=== PATIENT | female | born 1960 | race Caucasian/White ===

== ENCOUNTER 2016-09-30 15:42 | Emergency (ER) | payer OTHER ==
[~2016-09-30] VITALS: Ht 168.9 cm; Wt 98.9 kg
--- NOTE | ~2016-09-30 | EKG ---
PATIENT: MARYELLEN SALAZAR UNIT #: [id number] Ventricular Rate: 61 BPM Atrial Rate: 61 BPM P-R Interval: 154 ms QRS Duration: 98 ms Q-T Interval: 432 ms QTC Calculation(Bezet): 434 ms P [place]: 43 degrees Calculated R [place]: 16 degrees Calculated T [place]: 34 degrees Diagnosis Line: Normal sinus rhythm Diagnosis Line: Normal ECG Diagnosis Line: When compared with ECG of 01-MAR-2016 17:37, Diagnosis Line: Premature atrial complexes are no longer Present Diagnosis Line: Confirmed by JACQUELYN ERWIN MD ([id number]) on Diagnosis Line: 09/30/2016 10:50:56 PM INTERPRETING MD: GEORGINA
--- NOTE | ~2016-09-30 | CT72 ---
[facility] A Service of [facility] RADIOLOGY TEXT RESULTS PATIENT: MARYELLEN SALAZAR LOCATION: [facility] : 56 UNIT #: [id number] AGE: [address]: Jarrett Howell MD SEX: F ORDER DR: [id number] [place], [place] [address] [id number] MR#: [id number] Acc #: [id number] NAME: MARYELLEN SALAZAR : 1960 SEX: F STUDY DATE/TIME: 09/30/2016 15:55 UNIT: MELISSA ROOM: STUDY DESCRIPTION: CT Head Wo Contrast Stroke Attending Physician: Jarrett Howell Ordering Physician: Ed Doc Donna Villarreal Primary Care Physician: Primary Care Physician No MEDICAL IMAGING REPORT This report is preliminary unless electronic signature is present EXAM Noncontrast CT head DATE 09/30/2016 HISTORY Pain and tingling in the bilateral lower extremities and left side facial droop beginning today. COMPARISON None TECHNIQUE Axial noncontrast images were obtained from the skull base to the vertex. This CT exam was performed with one or more of the following radiation dose reduction techniques: automatic exposure control, adjustment of mA and/or kV according to patient size, and iterative reconstruction. FINDINGS Ventricular size and configuration are normal. There is no evidence of acute infarct or hemorrhage. There are no extraaxial fluid collections. No mass lesion or mass effect is seen. There are no skull fractures. IMPRESSION Normal noncontrast head CT. Dictated by... Leyla Gipson M.D. [facility] A Service of [facility] RADIOLOGY TEXT RESULTS PATIENT: MARYELLEN SALAZAR LOCATION: [facility] : 56 UNIT #: [id number] AGE: [address]: Jarrett Howell MD SEX: F ORDER DR: THIS IS AN ELECTRONICALLY VERIFIED REPORT Leyla Gipson M.D. at 10/01/2016 12:10 PM WILDA/to TD: 09/30/2016 20:42 JOB #: [id number] MEDICAL IMAGING REPORT Page 1 of 1 COPY
[~2016-09-30 15:42] MED LIST: ALBUTEROL2.5 MG/0.5 INH; AMOXICILLIN500 M1 PO; ASPIRIN81 M2 PO; BACLOFEN10 MG PO; CARVEDILOL6.25 MG PO; COREG6.25 MG PO; DULOXETINE HCL60 MG PO; FUROSEMIDE40 MG PO; GABAPENTIN400 M2 PO; LASIX80 MG PO; LIPITOR40 MG DOB; LOSARTAN POTASS50 MG PO; NAPROSYN500 MG PO; NITROGLYGERIN0.4 MG SL; PANTOPRAZOLE SO40 MG PO; POTASSIUM CHLO10 MEQ DOB; PROAIR RESPICL90 MCG; SYMBICORT INH; VITAMIN D250000 UNIT PO; XANAX2 MG PO
[2016-09-30 16:06] LABS: BASOPHIL# 0.1 X10e3 (0-0.3); BASOPHIL% 0.9 % (0-2.5); EOSINOPHIL# 0.3 X10e3 (0-0.7); EOSINOPHIL% 3.1 % (0.0-7.0); HEMATOCRIT 36.9 % (35.0-45.0); HEMOGLOBIN 12.5 gm/dL (12.0-16.0); LYMPHOCYTE# 3.6 X10e3 (1.0-3.5); LYMPHOCYTE% 38.8 % (17.0-45.0); MEAN CELL VOLUME 88.7 FL (83-96); MEAN CORPUSCULAR HEMOGLOBIN 30.1 PG (28-34); MEAN CORPUSCULAR HGB CONC 33.9 g/dL (30-36); MEAN PLATELET VOLUME 8.2 FL (6.5-11.5); MONOCYTE# 0.9 X10e3 (0-1.0); MONOCYTE% 9.7 % (3.0-12.0); NEUTROPHIL# 4.4 X10e3 (1.5-7.1); NEUTROPHIL% 47.5 % (40-75); PLATELET COUNT 246 X10e3 (140-420); RED BLOOD COUNT 4.16 X10e (3.90-5.30); RED CELL DISTRIBUTION WIDTH 14.7 % (11.0-15.5); WHITE BLOOD COUNT 9.2 X10e3 (4.0-10.5)
[2016-09-30 16:07] LABS: DIFF IND NO
[2016-09-30 16:11] LABS: POC - CREATININE 0.82 mg/dL (0.44-1.03); POC - GFR >60.0 mL/min (>60)
[2016-09-30 16:17] LABS: PARTIAL THROMBOPLASTIN TIME 31.2 SECONDS (23.5-31.3); PROTHROMBIN TIME (PATIENT) 11.1 SECONDS (10.0-11.7)
[2016-09-30 16:23] LABS: ALBUMIN SERUM 3.5 g/dL (3.5-5.0); BILIRUBIN, DIRECT 0.1 mg/dL (0.0-0.2); BILIRUBIN,INDIRECT 0.1 mg/dL (0.0-0.9); BILIRUBIN,TOTAL 0.2 mg/dL (0.2-2.0); BUN/CREATININE RATIO 11.42; CALCIUM SERUM 8.9 mg/dL (8.4-10.2); CREATININE SERUM 0.7 mg/dL (0.6-1.4); GLOM FILT RATE Estimated 95.5 mL/min (>60); POTASSIUM 3.9 mmol/L (3.5-5.1); PROTEIN TOTAL SERUM 6.3 g/dL (6.0-8.3)
[2016-09-30 16:45] LABS: POC - CKMB <1.0 ng/mL (0.0-7.9); POC - TROPONIN <0.05 ng/mL (<=0.05)
[2016-09-30 18:38] LABS: POC - CKMB <1.0 ng/mL (0.0-7.9); POC - TROPONIN <0.05 ng/mL (<=0.05)
== END 2016-09-30 19:05 | disposition home or self-care (01) ==
LOC: CED 15:42
PROVIDERS: Emergency Medicine
DX: S66.911A Strain of unspecified muscle, fascia and tendon at wrist and hand level, right hand, initial encounter (principal); E78.5 Hyperlipidemia, unspecified; I10 Essential (primary) hypertension; J44.9 Chronic obstructive pulmonary disease, unspecified; F17.210 Nicotine dependence, cigarettes, uncomplicated; W86.8XXA Exposure to other electric current, initial encounter; Y92.009 Unspecified place in unspecified non-institutional (private) residence as the place of occurrence of the external cause
CPT/HCPCS: 29125; 36415; 70450; 80048; 80076; 82553; 82565; 82947; 84484; 85025; 85610; 85730; 93005; 99285